=== PATIENT | male | born 1985 | race Caucasian/White ===

== ENCOUNTER → 2018-09-08 | Emergency (ER) | payer OTHER ==
[~2018-09-08] VITALS: Ht 180.3 cm; Wt 83.9 kg
[~2018-09-08] MED LIST: CONTRAST GIVEN. MC PRN; FAMOTIDINE 20 MG/2 ML VIAL IVP ONE; IOHEXOL 300 MG/ML 100ML VIAL. IV ONE; IV NORMAL SALINE 1000ML BAG 1,000 ML IV ONE; KETOROLAC 30 MG/ML VIAL. IV ONE; ONDA4TAB7 PO; ONDANSETRON PF 4 MG/2 ML VIAL. IV ONE; RANI300C PO
--- NOTE | 2018-09-08 16:26 | PHYS DOC ---
Past Medical History Additional Past Medical Histor: ulcerative colitis Adult General Chief Complaint Chief Complaint: ABDOMINAL PAIN HPI HPI Patient is a 33 year old male with history of colitis who presents today complaining of 2 out of 10 left upper quadrant abdominal pain that has been going on since this morning. Patient is also complaining of diarrhea and vomiting. He states he vomited some blood. Patient denies any fever. Denies any bloody stools. Review of Systems Review of Systems Constitutional: Denies fever or chills [] Eyes: Denies change in visual acuity, redness, or eye pain [] HENT: Denies nasal congestion or sore throat [] Respiratory: Denies cough or shortness of breath [] Cardiovascular: No additional information not addressed in HPI [] GI: Reports left-sided abdominal pain, nausea vomiting. Reports diarrhea. : Denies dysuria or hematuria [] Musculoskeletal: Denies back pain or joint pain [] Integument: Denies rash or skin lesions [] Neurologic: Denies headache, focal weakness or sensory changes [] All other systems were reviewed and found to be within normal limits, except as documented in this note. Current Medications Current Medications Current Medications Medications (Trade) Dose Ordered Sig/Seng Start Time Stop Time Status Last Admin Dose Admin Famotidine (Pepcid Vial) 20 mg 1X ONCE 09/08/18 16:45 09/08/18 16:46 DC 09/08/18 16:48 20 MG Info (CONTRAST GIVEN -- Rx MONITORING) 1 each PRN DAILY PRN 09/08/18 17:00 09/10/18 16:59 Iohexol (Omnipaque 300 Mg/ml) 75 ml 1X ONCE 09/08/18 17:00 09/08/18 17:01 DC 09/08/18 17:13 75 ML Ketorolac Tromethamine (Toradol 30mg Vial) 30 mg 1X ONCE 09/08/18 16:45 09/08/18 16:46 DC 09/08/18 16:48 30 MG Ondansetron HCl (Zofran) 4 mg 1X ONCE 09/08/18 16:45 09/08/18 16:46 DC 09/08/18 16:48 4 MG Sodium Chloride 1,000 ml @ 1,000 mls/hr 1X ONCE 09/08/18 16:30 09/08/18 17:29 DC 09/08/18 16:37 1,000 MLS/HR Allergies Allergies Allergies Coded Allergies Type Severity Reaction Last Updated Verified No Known Drug Allergies 09/08/18 No Physical Exam Physical Exam Constitutional: Well developed, well nourished, no acute distress, non-toxic appearance. [] HENT: Normocephalic, atraumatic, bilateral external ears normal, oropharynx moist, no oral exudates, nose normal. [] Eyes: PERRLA, EOMI, conjunctiva normal, no discharge. [] Neck: Normal range of motion, no tenderness, supple, no stridor. [] Cardiovascular:Heart rate regular rhythm, no murmur [] Lungs & Thorax: Bilateral breath sounds clear to auscultation [] Abdomen: Bowel sounds normal, soft, no right upper quadrant or right lower quadrant tenderness, mild tenderness on the left upper quadrant and left mid abdomen, no masses, no pulsatile masses. [] Skin: Warm, dry, no erythema, no rash. [] Back: No tenderness, no CVA tenderness. [] Extremities: No tenderness, no cyanosis, no clubbing, ROM intact, no edema. [] Neurologic: Alert and oriented X 3, normal motor function, normal sensory function, no focal deficits noted. [] Psychologic: Affect normal, judgement normal, mood normal. [] Current Patient Data Vital Signs Vital Signs Date Time Temp Pulse Resp B/P (MAP) Pulse Ox O2 Delivery O2 Flow Rate FiO2 09/08/18 16:28 98.0 66 22 168/92 (117) 99 Room Air 98.0 Lab Values Laboratory Tests Test 09/08/18 16:25 White Blood Count 20.5 x10^3/uL (4.0-11.0) H Red Blood Count 4.99 x10^6/uL (4.30-5.70) Hemoglobin 15.4 g/dL (13.0-17.5) Hematocrit 44.2 % (39.0-53.0) Mean Corpuscular Volume 89 fL (79-100) Mean Corpuscular Hemoglobin 31 pg (25-35) Mean Corpuscular Hemoglobin Concent 35 g/dL (31-37) Red Cell Distribution Width 12.9 % (11.5-14.5) Platelet Count 474 x10^3/uL (140-400) H Neutrophils (%) (Auto) 90 % (31-73) H Lymphocytes (%) (Auto) 7 % (24-48) L Monocytes (%) (Auto) 3 % (0-9) Eosinophils (%) (Auto) 0 % (0-3) Basophils (%) (Auto) 0 % (0-3) Neutrophils # (Auto) 18.4 x10^3uL (1.8-7.7) H Lymphocytes # (Auto) 1.4 x10^3/uL (1.0-4.8) Monocytes # (Auto) 0.5 x10^3/uL (0.0-1.1) Eosinophils # (Auto) 0.1 x10^3/uL (0.0-0.7) Basophils # (Auto) 0.1 x10^3/uL (0.0-0.2) Segmented Neutrophils % 95 % (35-66) H Lymphocytes % 3 % (24-48) L Monocytes % 1 % (0-10) Basophils % 1 % (0-3) Platelet Estimate Adequate (ADEQUATE) Sodium Level 141 mmol/L (136-145) Potassium Level 4.0 mmol/L (3.5-5.1) Chloride Level 102 mmol/L (98-107) Carbon Dioxide Level 28 mmol/L (21-32) Anion Gap 11 (6-14) Blood Urea Nitrogen 9 mg/dL (8-26) Creatinine 0.9 mg/dL (0.7-1.3) Estimated GFR (Cockcroft-Gault) 97.2 BUN/Creatinine Ratio 10 (6-20) Glucose Level 117 mg/dL (70-99) H Calcium Level 10.1 mg/dL (8.5-10.1) Total Bilirubin 0.7 mg/dL (0.2-1.0) Aspartate Amino Transferase (AST) 19 U/L (15-37) Alanine Aminotransferase (ALT) 42 U/L (16-63) Alkaline Phosphatase 77 U/L (46-116) Total Protein 9.5 g/dL (6.4-8.2) H Albumin 4.8 g/dL (3.4-5.0) Albumin/Globulin Ratio 1.0 (1.0-1.7) Lipase 105 U/L (73-393) Ethyl Alcohol Level < 10 mg/dL (0-10) Laboratory Tests 09/08/18 16:25 Laboratory Tests 09/08/18 16:25 EKG EKG [] Radiology/Procedures Radiology/Procedures [] Impressions: COMPARISON: None available TECHNIQUE: Axial CT images of the abdomen pelvis were performed with IV contrast. Coronal and sagittal reformats are performed Exposure: One or more of the following individualized dose reduction techniques were utilized for this examination: 1. Automated exposure control 2. Adjustment of the mA and/or kV according to patient size 3. Use of iterative reconstruction technique FINDINGS: The bibasilar lungs are clear. No evidence of free air identified in the abdomen. Mild decreased attenuation noted in the liver likely hepatic steatosis. The visualized spleen, adrenals grossly appears unremarkable. The gallbladder is mildly distended. The stomach is mildly distended. The visualized pancreas grossly appears unremarkable. Small bowel is nondilated. There is diffuse thickening of the colon wall with surrounding mild inflammatory fat stranding likely colitis. The appendix is normal. Urinary bladder is mildly distended. Bilateral kidneys enhance symmetrically. Mild aortic atherosclerosis. Chronic left hip dysplasia identified with shallow acetabulum and dysplastic appearing left femoral head. No evidence of lytic bony destructive lesion. IMPRESSION: 1. Diffuse mild thickening of the colon with surrounding inflammatory fat stranding likely colitis probably due to known ulcerative colitis. 2. Hepatic steatosis. Course & Med Decision Making Course & Med Decision Making Pertinent Labs and Imaging studies reviewed. (See chart for details) This is a 33-year-old male patient presenting to the ED today with left upper quadrant abdominal pain with nausea vomiting and diarrhea. Has history of colitis. 17:[address] Casas. ED course: Patient has a known history of ulcerative colitis for which she says a last flare was 5-1/2 or 6 years ago. He's had a colonoscopy in the past. He has not followed up since. Today he states his symptoms are much better after treatment in the emergency department. We had a long discussion about the need to likely start treatment for his ulcerative colitis. The patient wishes to follow up with the GI doctor to make sure this is indeed what he's dealing with an start being followed that way. Given the fact that he feels so much better I think this is a perfect idea the patient is stable for discharge at this time. Dragon Disclaimer Dragon Disclaimer This electronic medical record was generated, in whole or in part, using a voice recognition dictation system. Departure Departure Impression: Primary Impression: Abdominal pain Additional Impression: Ulcerative colitis Disposition: HOME, SELF-CARE Condition: STABLE Referrals: KAELYN TRENT MD Call Dr. Trent's office first thing in the morning and make an appointment. I believe it is very important that she follow with a GI specialist in the very near future. Patient Instructions: Ulcerative Colitis Additional Instructions: Return to the emergency department with any new or concerning symptoms Scripts Ranitidine Hcl (RANITIDINE HCL) 300 Mg Capsule 1 CAP PO DAILY, #30 CAP 3 Refills Prov: STEPHEN CASAS DO 09/08/18 Ondansetron Hcl (ZOFRAN) 4 Mg Tablet 1 TAB PO Q8HRS PRN for NAUSEA, #20 TAB Prov: STEPHEN CASAS DO 09/08/18 Problem Qualifiers Additional Impression: Ulcerative colitis Ulcerative colitis location: unspecified ulcerative colitis location Digestive disease complication type: without complication Qualified Codes: K51.90 - Ulcerative colitis, unspecified, without complications MAGNUS MCDOWELL APRN Sep 08, 2018 16:26 STEPHEN CASAS DO Sep 08, 2018 17:55
[2018-09-08 16:36] LABS: BASO # 0.1 x10^3/uL (0.0-0.2); BASO % 0 % (0-3); EOS # 0.1 x10^3/uL (0.0-0.7); EOS % 0 % (0-3); HEMATOCRIT 44.2 % (39.0-53.0); HEMOGLOBIN 15.4 g/dL (13.0-17.5); LYMPH # 1.4 x10^3/uL (1.0-4.8); LYMPH % 7 % (24-48); MEAN CORPUSCULAR HEMOGLOBIN 31 pg (25-35); MEAN CORPUSCULAR HGB CONC 35 g/dL (31-37); MEAN CORPUSCULAR VOLUME 89 fL (79-100); MONO # 0.5 x10^3/uL (0.0-1.1); MONO % 3 % (0-9); NEUT # 18.4 x10^3uL (1.8-7.7); NEUT % 90 % (31-73); PLATELET COUNT 474 x10^3/uL (140-400); RED BLOOD COUNT 4.99 x10^6/uL (4.30-5.70); RED CELL DISTRIBUTION WIDTH 12.9 % (11.5-14.5); WHITE BLOOD COUNT 20.5 x10^3/uL (4.0-11.0)
[2018-09-08 16:54] LABS: CALCIUM 10.1 mg/dL (8.5-10.1); CREATININE 0.9 mg/dL (0.7-1.3); GFR 97.2
[2018-09-08 17:00] LABS: ALBUMIN 4.8 g/dL (3.4-5.0); TOTAL BILIRUBIN 0.7 mg/dL (0.2-1.0); TOTAL PROTEIN 9.5 g/dL (6.4-8.2)
--- NOTE | 2018-09-08 17:22 | RAD ---
Examination: CT of the abdomen pelvis with IV contrast HISTORY: History of abdominal pain, ulcerative colitis COMPARISON: None available TECHNIQUE: Axial CT images of the abdomen pelvis were performed with IV contrast. Coronal and sagittal reformats are performed Exposure: One or more of the following individualized dose reduction techniques were utilized for this examination: 1. Automated exposure control 2. Adjustment of the mA and/or kV according to patient size 3. Use of iterative reconstruction technique FINDINGS: The bibasilar lungs are clear. No evidence of free air identified in the abdomen. Mild decreased attenuation noted in the liver likely hepatic steatosis. The visualized spleen, adrenals grossly appears unremarkable. The gallbladder is mildly distended. The stomach is mildly distended. The visualized pancreas grossly appears unremarkable. Small bowel is nondilated. There is diffuse thickening of the colon wall with surrounding mild inflammatory fat stranding likely colitis. The appendix is normal. Urinary bladder is mildly distended. Bilateral kidneys enhance symmetrically. Mild aortic atherosclerosis. Chronic left hip dysplasia identified with shallow acetabulum and dysplastic appearing left femoral head. No evidence of lytic bony destructive lesion. IMPRESSION: 1. Diffuse mild thickening of the colon with surrounding inflammatory fat stranding likely colitis probably due to known ulcerative colitis. 2. Hepatic steatosis. Electronically signed by: Lul Russell MD (09/08/2018 5:19 PM) [facility]
[2018-09-08 17:27] LABS: % BASOS 1 % (0-3); % LYMPHS 3 % (24-48); % MONOS 1 % (0-10); % SEGS 95 % (35-66)
[2018-09-08 17:32] LABS: PLT ESTIMATE ADEQUATE (ADEQUATE)
[2018-09-08 18:25] VITALS: BP 138/72
== END ==
LOC: ER 16:13
DX: K51.90 Ulcerative colitis, unspecified, without complications (principal)
CPT/HCPCS: 74177; 80053; 83690; 85007; 85025; 96361; 96374; 96375; 99284; G0480; J1885; J2405; J3490; J7030; Q9967; 36415

== ENCOUNTER 2020-03-26 15:02 | Emergency (ER) | payer SELFPAY ==
[~2020-03-26] VITALS: Ht 180.3 cm; Wt 86.0 kg
[~2020-03-26 15:02] MED LIST changes: -CONTRAST GIVEN. MC PRN; -FAMOTIDINE 20 MG/2 ML VIAL IVP ONE; -IOHEXOL 300 MG/ML 100ML VIAL. IV ONE; -IV NORMAL SALINE 1000ML BAG 1,000 ML IV ONE; -KETOROLAC 30 MG/ML VIAL. IV ONE; -ONDANSETRON PF 4 MG/2 ML VIAL. IV ONE
--- NOTE | 2020-03-26 16:41 | PHYS DOC ---
Past Medical History Past Medical History: No Pertinent History Additional Past Medical Histor: ulcerative colitis Past Surgical History: No Surgical History Smoking Status: Current Every Day Smoker Alcohol Use: None Drug Use: None General Adult EDM: Chief Complaint: ABDOMINAL PAIN HPI: HPI: Patient is a 35-year-old male with a history of ulcerative colitis presents with a 24-hour history of severe abdominal pain nausea and vomiting. States has been unable to keep anything at all down over the course the last 24 hours. He denies any melena hematemesis or hematochezia. He states he has been laying on the bathroom floor now for several hours just so he is close to the stool so he can throw up. He tried to take some dicyclomine at home without relief. [] Review of Systems: Review of Systems: Constitutional: Denies fever or chills. [] Eyes: Denies change in visual acuity. [] HENT: Denies nasal congestion or sore throat. [] Respiratory: Denies cough or shortness of breath. [] Cardiovascular: Denies chest pain or edema. [] GI: Per HPI. [] : Denies dysuria. [] Musculoskeletal: Denies back pain or joint pain. [] Integument: Denies rash. [] Neurologic: Denies headache, focal weakness or sensory changes. [] Endocrine: Denies polyuria or polydipsia. [] Lymphatic: Denies swollen glands. [] Psychiatric: Denies depression or anxiety. [] Heart Score: Risk Factors: Risk Factors: DM, Current or recent (<one month) smoker, HTN, HLP, family history of CAD, obesity. Risk Scores: Score 0 - 3: 2.5% MACE over next 6 weeks - Discharge Home Score 4 - 6: 20.3% MACE over next 6 weeks - Admit for Clinical Observation Score 7 - 10: 72.7% MACE over next 6 weeks - Early Invasive Strategies Allergies: Allergies: Allergies Coded Allergies Type Severity Reaction Last Updated Verified No Known Drug Allergies 09/08/18 No Physical Exam: PE: Constitutional: Well developed, well nourished, moderate distress, non-toxic appearance. [] HENT: Normocephalic, atraumatic, bilateral external ears normal, oropharynx moist, no oral exudates, nose normal. [] Eyes: PERRLA, EOMI, conjunctiva normal, no discharge. [] Neck: Normal range of motion, no tenderness, supple, no stridor. [] Cardiovascular:Heart rate regular rhythm, no murmur [] Lungs & Thorax: Bilateral breath sounds clear to auscultation [] Abdomen: Diffusely tender to palp no rebound or guarding. [] Skin: Warm, dry, no erythema, no rash. [] Back: No tenderness, no CVA tenderness. [] Extremities: No tenderness, no cyanosis, no clubbing, ROM intact, no edema. [] Neurologic: Alert and oriented X 3, normal motor function, normal sensory function, no focal deficits noted. [] Psychologic: Anxious [] Current Patient Data: Vital Signs: Vital Signs Date Time Temp Pulse Resp B/P (MAP) Pulse Ox O2 Delivery O2 Flow Rate FiO2 03/26/20 15:28 98.7 58 18 155/86 (109) 99 Room Air 98.7 EKG: EKG: [] Radiology/Procedures: Radiology/Procedures: [] Course & Med Decision Making: Course & Med Decision Making Pertinent Labs and Imaging studies reviewed. (See chart for details) We attempted to secure an IV for medication fluids and a with contrast CT scan however the patient was a difficult stick and we were not able to obtain the IV. At this point, the patient decided to leave AGAINST MEDICAL ADVICE before anyone else could try an IV.] Frances Disclaimer: Frances Disclaimer: This electronic medical record was generated, in whole or in part, using a voice recognition dictation system. Departure Departure Impression: Primary Impression: Abdominal pain Qualified Codes: R10.84 - Generalized abdominal pain Disposition: 07 AGAINST MEDICAL ADVICE Condition: STABLE Referrals: NO PCP (PCP) Patient Instructions: Abdominal Pain (Nonspecific) Additional Instructions: Return to the emergency department with any new or concerning symptoms Justicifation of Admission Dx: Justifications for Admission: Justification of Admission Dx: No STEPHEN CALL DO Mar 26, 2020 16:41
[2020-03-26 16:43] VITALS: BP 142/79
[2020-03-26] MEDS ORDERED: ONDANSETRON PF 4 MG/2 ML VIAL. IV ONE (16:45)
[2020-03-26] MEDS ORDERED: IV NORMAL SALINE 1000ML BAG 1,000 ML IV ONE (16:45)
[2020-03-26] MEDS ORDERED: fentaNYL PF VIAL 100 MCG/2 ML VIAL IV ONE (16:45)
== END 2020-03-26 18:01 | disposition left against medical advice (07) ==
LOC: ER 15:02
DX: R10.84 Generalized abdominal pain (principal); R11.2 Nausea with vomiting, unspecified; F17.200 Nicotine dependence, unspecified, uncomplicated
CPT/HCPCS: 96360; 99281; 99285-25